=== PATIENT | male | born 1960 | race American Indian/Alaskan Native ===

== ENCOUNTER 2019-02-20 06:03 | Emergency (ER) | payer BC, MEDICARE ==
--- NOTE | 2019-02-20 06:50 | Emergency Department Report ---
ED Shortness of Breath HPI - General Chief Complaint: Dyspnea/Respdistress Stated Complaint: LUAN Time Seen by Provider: 02/20/19 06:27 Source: patient, EMS Mode of arrival: Stretcher Limitations: No Limitations - History of Present Illness Initial Comments: 59-year-old male with history of hypertension, diabetes, congestive heart failure presents to ED with shortness of breath since yesterday. Patient states he was taken off of his Lasix years ago, and is no longer on a diuretic. Patient reports he has had fullness around his upper abdomen. States his dyspnea was relieved by going to the bathroom. However, pt states he awoke from sleep this morning feeling short of breath again. Patient denies chest pain, cough, nausea or vomiting, abdominal pain, leg pain or swelling. Patient reports subjective fever. PCP: [facility] B[facility] Complaint: shortness of breath -: days(s) (1) Severity: moderate Consistency: intermittent Worsens With: nothing Known History Of: congestive heart failure Associated Symptoms: fever Treatments Prior to Arrival: none - Related Data Home Oxygen Therapy: No Home Medications Medication Instructions Recorded Confirmed Last Taken AtorvaSTATin 40 mg PO DAILY 02/20/19 02/20/19 Unknown ISOSORBIDE MONOnitrate [Monoket] 60 mg PO BID 02/20/19 02/20/19 Unknown Metoprolol Succinate 100 mg PO DAILY 02/20/19 02/20/19 Unknown lisinopriL [Zestril TAB] 20 mg PO DAILY 02/20/19 02/20/19 Unknown Previous Rx's Medication Instructions Recorded Last Taken Type Aspirin [Woolsey Aspirin] 81 mg PO DAILY #30 tab.chew 06/15/13 Unknown Rx Metformin HCl [Glucophage] 1,000 mg PO BID #60 tablet 06/15/13 Unknown Rx amLODIPine 10 mg PO DAILY #30 tablet 06/15/13 Unknown Rx hydrALAZINE [Apresoline TAB] 50 mg PO TID #90 tablet 06/15/13 Unknown Rx Allergies Allergy/AdvReac Type Severity Reaction Status Date / Time Androgenic Anabolic Steroid Allergy Rash Verified 06/13/13 14:38 ED Review of Systems ROS: Stated complaint: LUAN Other details as noted in HPI Comment: All other systems reviewed and negative Constitutional: fever Respiratory: shortness of breath. denies: cough Cardiovascular: denies: chest pain Gastrointestinal: denies: abdominal pain, nausea, vomiting ED Past Medical Hx - Past Medical History Hx Hypertension: Yes Hx Congestive Heart Failure: Yes Hx Diabetes: Yes (non insulin dependant) Hx Asthma: No Hx COPD: Yes Additional medical history: hyperlipedemia - Social History Smoking Status: Never Smoker - Medications Home Medications: Home Medications Medication Instructions Recorded Confirmed Last Taken Type Aspirin [Woolsey Aspirin] 81 mg PO DAILY #30 tab.chew 06/15/13 02/20/19 Unknown Rx Metformin HCl [Glucophage] 1,000 mg PO BID #60 tablet 06/15/13 02/20/19 Unknown Rx amLODIPine 10 mg PO DAILY #30 tablet 06/15/13 02/20/19 Unknown Rx hydrALAZINE [Apresoline TAB] 50 mg PO TID #90 tablet 06/15/13 02/20/19 Unknown Rx AtorvaSTATin 40 mg PO DAILY 02/20/19 02/20/19 Unknown History ISOSORBIDE MONOnitrate [Monoket] 60 mg PO BID 02/20/19 02/20/19 Unknown History Metoprolol Succinate 100 mg PO DAILY 02/20/19 02/20/19 Unknown History lisinopriL [Zestril TAB] 20 mg PO DAILY 02/20/19 02/20/19 Unknown History ED Physical Exam - General Limitations: No Limitations General appearance: alert - Head Head exam: Present: atraumatic, normocephalic - Eye Eye exam: Present: normal appearance - ENT ENT exam: Present: mucous membranes moist - Neck Neck exam: Present: normal inspection - Respiratory Respiratory exam: Present: respiratory distress (mild), other (slightly tachypneic) - Cardiovascular Cardiovascular Exam: Present: regular rate, normal rhythm - GI/Abdominal GI/Abdominal exam: Present: soft. Absent: distended, tenderness - Extremities Exam Extremities exam: Present: normal inspection. Absent: pedal edema, calf tenderness - Neurological Exam Neurological exam: Present: alert, oriented X3 - Psychiatric Psychiatric exam: Present: normal affect, normal mood - Skin Skin exam: Present: warm, dry, intact, normal color ED Course Vital Signs 02/20/19 02/20/19 02/20/19 06:08 10:24 12:41 Temperature 97.7 F Pulse Rate 87 Respiratory 22 Rate Blood Pressure 155/104 Blood Pressure 143/88 [Left] O2 Sat by Pulse 97 95 96 Oximetry - Consultations Consultation #1: 02/20/19 10:46 Spoke markel/ [facility] on-call physicain, Dr Vinson. Will speak to their hospitalist and call back. 02/20/19 11:12 Pt accepted by hospitalist, Dr Alexandro Ugalde, at [facility]. ED Medical Decision Making - Lab Data Result diagrams: 02/20/19 06:40 02/20/19 06:40 - EKG Data -: EKG Interpreted by Me EKG shows normal: sinus rhythm Rate: normal - EKG Data Interpretation: nonspecific ST-T wave geronimo, other (nonspecific intraventricular delay; frequent PVCs present) - Radiology Data Radiology results: report reviewed, image reviewed - Medical Decision Making 59 yo M w/ CHF exacerbation. CT negative for PE. Lasix given. Pt feeling better. Troponin normal. EKG shows no ST changes. Spoke w/ [facility], pt to be transferred to [facility] for further management. - Differential Diagnosis CHF, PE, pneumonia, ACS Critical care attestation.: If time is entered above; I have spent that time in minutes in the direct care of this critically ill patient, excluding procedure time. ED Disposition Clinical Impression: Acute on chronic systolic heart failure Disposition: [id number] ANOTHER TYPE HLTHCARE Is pt being admited?: No Condition: Stable Referrals: NYDIA MONTEMAYOR MD [Primary Care Provider] - 3-5 Days
[2019-02-20 07:07] LABS: Basophils # (Auto) 0.1 K/mm3 (0.0-0.1); Basophils % (Auto) 1.2 % (0.0-1.8); Eosinophils # (Auto) 0.1 K/mm3 (0.0-0.4); Eosinophils % (Auto) 0.6 % (0.0-4.3); Hematocrit 44.4 % (35.5-45.6); Hemoglobin 14.2 gm/dl (11.8-15.2); Lymphocytes # (Auto) 1.7 K/mm3 (1.2-5.4); Lymphocytes % (Auto) 17.9 % (13.4-35.0); Mean Corpuscular HGB Conc 32 % (32-34); Mean Corpuscular Volume 79 fl (84-94); Monocytes # (Auto) 0.5 K/mm3 (0.0-0.8); Monocytes % (Auto) 5.3 % (0.0-7.3); Platelet Count 280 K/mm3 (140-440); Red Blood Count 5.65 M/mm3 (3.65-5.03); Red Cell Distribution Width 16.2 % (13.2-15.2)
[2019-02-20 07:19] LABS: INR 0.98 (0.87-1.13)
--- NOTE | 2019-02-20 07:23 | XRay Report ---
CHEST 1 VIEW 6:41 AM INDICATION / CLINICAL INFORMATION: Shortness of breath starting this morning. COMPARISON: 06/13/2013. FINDINGS: SUPPORT DEVICES: None. HEART / MEDIASTINUM: There is [id number] cardiomegaly with a left ventricular configuration. Th ere is mild aortic tortuosity with calcification in the arch. Pulmonary vasculature is normal. LUNGS / PLEURA: Interstitial lung markings are minimally increased. There is slight blunting of the r ight lateral costophrenic angle. No pneumothorax. ADDITIONAL FINDINGS: No significant additional findings. IMPRESSION: Cardiomegaly with possible minimal congestive heart failure. Signer Name: Jose Hansen MD Signed: 02/20/2019 7:19 AM Workstation Name: [id number]
[2019-02-20 07:25] LABS: Alanine Aminotransferase 24 units/L (7-56); BUN/Creatinine Ratio 11; Blood Urea Nitrogen 10 mg/dL (9-20); Calcium 9.1 mg/dL (8.4-10.2); Hemolysis Index 76
[2019-02-20] MEDS ORDERED: FUROSEMIDE 40 MG/4 ML INJ IV ONE (07:28)
--- NOTE | 2019-02-20 10:00 | Cat Scan Report ---
CTA CHEST WITH CONTRAST INDICATION : Shortness of breath. TECHNIQUE: Axial imaging performed through the chest, with contrast bolus timing set to maximize opa cification of the pulmonary arteries. Sagittal and coronal reformatted images. 3-plane MIP reformatte d images were obtained. All CT scans at this location are performed using CT dose reduction for ALAR A by means of automated exposure control. 100 mL of intravenous contrast administered. COMPARISON: AP chest performed the same day FINDINGS: Bolus: Contrast bolus timing is adequate. PTE: No filling defect is present to suggest PTE. Mediastinum: Mild cardiomegaly is evident. No pericardial effusion. Mild coronary artery calcificati ons. The aorta is normal caliber with mild calcific plaques at the arch. No aneurysm. No pathologic mediastinal adenopathy. The thyroid gland, tracheobronchial tree and esophagus are within normal limi ts. Lungs: There is minimal groundglass infiltration in the right upper lobe and left lower lobe. I susp ect this represents congestive changes. If fever is present, very early infiltrates could be consider ed. Trace left pleural fluid is noted. No pneumothorax. Bones: Degenerative changes in the spine with nothing acute. Upper abdomen: Limited imaging of the upper abdomen shows nothing acute. IMPRESSION: No pulmonary embolus is identified. Findings suggestive of minimal to mild CHF. See above. Signer Name: Geoff Esquivel Jr, MD Signed: 02/20/2019 9:55 AM Workstation Name: [id number]
[2019-02-20 14:50] VITALS: BP 117/69
== END 2019-02-20 16:26 | disposition other institution (70) ==
LOC: ED 06:03
DX: I50.23 Acute on chronic systolic (congestive) heart failure (principal); I11.0 Hypertensive heart disease with heart failure; I50.9 Heart failure, unspecified; E11.9 Type 2 diabetes mellitus without complications; E78.5 Hyperlipidemia, unspecified; Z79.899 Other long term (current) drug therapy; Z88.8 Allergy status to other drugs, medicaments and biological substances
CPT/HCPCS: 36415; 71045; 71275; 80053; 82962; 83880; 84484; 85025; 85379; 85610; 85730; 93005; 93010; 96374; 99285; J1940; Q9967